=== PATIENT | female | born 1955 | race African-American/Black ===

== ENCOUNTER 2023-02-20 07:54 | Outpatient (CLI) | payer MEDICARE, SELFPAY | END 2023-02-20 07:55 | disposition home or self-care (01) | LOC: ANHBWCAUD 07:55 | DX: H90.41 Sensorineural hearing loss, unilateral, right ear, with unrestricted hearing on the contralateral side (principal); H90.72 Mixed conductive and sensorineural hearing loss, unilateral, left ear, with unrestricted hearing on the contralateral side | CPT/HCPCS: 92557; 92567 ==